=== PATIENT | female | born 2000 | race Caucasian/White ===

== ENCOUNTER 2022-09-23 19:44 | Emergency (ER) | payer OTHER ==
[2022-09-23] MEDS ORDERED: ONDANSETRON 4 MG (ODT) TAB ONE (20:39)
[2022-09-23] MEDS ORDERED: ACETAMINOPHEN 500 MG TAB ONE (20:39)
[2022-09-23 20:50] LABS: Urine Blood 2+ (Negative); Urine Glucose Negative (Negative); Urine Protein Trace (Negative); Urine pH 7.5 (5.0-7.0)
--- NOTE | 2022-09-23 21:34 | RAD REPORT ---
EXAM DESCRIPTION: RAD - Chest Pa And Lat (2 Views) - 09/23/2022 9:05 pm CLINICAL HISTORY: SOB Chest pain. COMPARISON: No comparisons FINDINGS: The lungs are clear. The heart is normal in size. No displaced fractures. IMPRESSION: No acute or concerning finding suspected.
--- NOTE | 2022-09-23 22:01 | EDPHYS ---
Physician Documentation [facility] Name: Anila Cai Age: 22 yrs Sex: Female : 2000 Arrival Date: 09/23/2022 Time: 19:49 Bed 10 Private MD: ED Physician Lux Jacobs HPI: 09/23 20:17 This 22 yrs old Female presents to ER via Ambulatory with complaints of COVID +, cp Headache, Shortness Of Breath, Sore Throat, General Weakness. 20:17 The patient has shortness of breath at rest. cp 20:17 Onset: The symptoms/episode began/occurred today. Associated signs and symptoms: cp Pertinent positives: non-productive cough, sore throat, headache, general weakness, Pertinent negatives: fever, vomiting. Severity of symptoms: in the emergency department the symptoms are unchanged despite home interventions. Patient reports testing positive for COVID-19 today with symptoms starting 2 days ago. 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 - Social history:: Smoking status: Patient denies any tobacco usage or history of. ROS: 20:20 Constitutional: Positive for body aches, Negative for chills, fever, poor PO intake. cp 20:20 Eyes: Negative for injury, pain, redness, and discharge. cp 20:20 ENT: Positive for sore throat, Negative for drainage from ear(s), ear pain, difficulty swallowing, difficulty handling secretions. 20:20 Cardiovascular: Negative for chest pain. 20:20 Respiratory: Positive for cough, shortness of breath, at rest. Negative for wheezing. 20:20 Abdomen/GI: Negative for abdominal pain, vomiting, diarrhea, constipation. 20:20 : Negative for urinary symptoms. 20:20 Neuro: Positive for headache, weakness, Negative for altered mental status. 20:20 All other systems are negative. Exam: 20:25 Constitutional: The patient appears in no acute distress, alert, awake, non-toxic, well cp developed, well nourished, obese. 20:25 Head/Face: Normocephalic, atraumatic. cp 20:25 Eyes: Periorbital structures: appear normal, Pupils: equal, round, and reactive to light and accomodation, Extraocular movements: intact throughout, Conjunctiva: normal, no exudate, no injection, Sclera: no appreciated abnormality, Lids and lashes: appear normal, bilaterally. 20:25 ENT: External ear(s): are unremarkable, Ear canal(s): are normal, clear, TM's: dullness, bilaterally, Nose: is normal, Mouth: Lips: moist, Oral mucosa: pink and intact, moist, Posterior pharynx: Airway: no evidence of obstruction, patent, Tonsils: no enlargement, no exudate, erythema, that is mild, exudate, is not appreciated. 20:25 Neck: ROM/movement: is normal, is supple, without pain, no range of motions limitations, no meningismus. 20:25 Chest/axilla: Inspection: normal. 20:25 Cardiovascular: Rate: normal, Rhythm: regular. 20:25 Respiratory: the patient does not display signs of respiratory distress, Respirations: normal, no use of accessory muscles, no retractions, labored breathing, is not present, Breath sounds: are clear throughout, no decreased breath sounds, no stridor, no wheezing. 20:25 Abdomen/GI: Inspection: abdomen appears normal, Palpation: abdomen is soft and non-tender, in all quadrants. 20:25 Neuro: Orientation: to person, place \T\ time. Mentation: is normal, Motor: moves all fours, strength is normal, Sensation: is normal. Vital Signs: 19:58 BP 130 / 69; Pulse 93; Resp 22; Temp 99.1; Pulse Ox 98% ; Weight 122.47 kg; Height 5 kb3 ft. 8 in. (172.72 cm); Pain 8/10; 22:12 BP 124 / 65; Pulse 90; Resp 18; Pulse Ox 99% ; kb3 19:58 Body Mass Index 41.05 (122.47 kg, 172.72 cm) kb3 MDM: 20:03 Patient medically screened. cp 20:30 Differential diagnosis: Anemia Anxiety Reaction pneumonia, Pneumothorax pulmonary cp edema, Pulmonary Embolism Sepsis. 22:00 Data reviewed: vital signs, nurses notes, lab test result(s), EKG, radiologic studies, cp plain films. 22:00 Test interpretation: by ED physician or midlevel provider: ECG, plain radiologic cp studies. Counseling: I had a detailed discussion with the patient and/or guardian regarding: the historical points, exam findings, and any diagnostic results supporting the discharge/admit diagnosis, lab results, radiology results, to return to the emergency department if symptoms worsen or persist or if there are any questions or concerns that arise at home. Response to treatment: the patient's symptoms have mildly improved after treatment, VSS. Patient appears non-toxic and no signs of respiratory distress. Will discharge to home for continued monitoring. 09/23 20:50 Order name: Urine Dipstick-Ancillary; Complete Time: 21:09 EDMS 09/23 21:33 Interpretation: Reviewed. 09/23 20:55 Order name: Urine --Ancillary (enter results); Complete Time: 21:09 wm 09/23 20:18 Order name: XRAY Chest Pa And Lat (2 Views); Complete Time: 21:59 cp 09/23 21:59 Interpretation: Report reviewed. 09/23 20:18 Order name: EKG; Complete Time: 20:19 cp 09/23 20:18 Order name: EKG - Nurse/Tech; Complete Time: 20:55 cp 09/23 20:18 Order name: Urine Dipstick-Ancillary (obtain specimen); Complete Time: 20:49 cp 09/23 20:18 Order name: Urine Test (obtain specimen); Complete Time: 20:49 cp 09/23 21:33 Order name: PO challenge; Complete Time: 22:03 cp Administered Medications: 20:42 Drug: Zofran (Ondansetron) 4 mg Route: PO; hb 21:30 Follow up: Response: No adverse reaction; Nausea is decreased kb3 20:42 Drug: Tylenol 1000 mg Route: PO; hb 21:30 Follow up: Response: No adverse reaction kb3 Disposition Summary: 09/23/22 22:00 Discharge Ordered Location: Home cp Problem: new cp Symptoms: have improved cp Condition: Stable cp Diagnosis - SARS-associated coronavirus as the cause of diseases classified elsewhere cp - Headache cp - Nausea cp Followup: cp - With: Private Physician - When: 2 - 3 days - Reason: Worsening of condition Discharge Instructions: - Discharge Summary Sheet cp - COVID-19 cp - Things to Know about the COVID-19 Pandemic - [facility] [place] - 10 Things You Can Do to Manage Your COVID-19 Symptoms at Home - [facility] [place] - COVID-19: Quarantine vs. Isolation - [facility] [place] cp - Prevent the Spread of COVID-19 if You Are Sick - [facility] [place] cp Forms: - Medication Reconciliation Form cp - Thank You Letter cp - Antibiotic Education cp - Prescription Opioid Use cp - Work release form mw Prescriptions: - Paxlovid (EUA) 150 mg x 2- 100 mg Oral tablet - take 3 tablet by ORAL route 2 times per day for 5 days per package directions; cp 30 tablet; Refills: 0, Product Selection Permitted - Zofran 4 mg Oral Tablet - take 1 tablet by ORAL route every 12 hours As needed; 20 tablet; Refills: 0, cp Product Selection Permitted Signatures: Dispatcher [employer] EDLux Arguelles PA PA cp Baxter, Heather, RN RN Gregoria Javier RN RN kb3
--- NOTE | 2022-09-23 22:01 | ER ---
Nurse's Notes [facility] Name: Anila Cai Age: 22 yrs Sex: Female : 2000 Arrival Date: 09/23/2022 Time: 19:49 Bed 10 Private MD: Diagnosis: SARS-associated coronavirus as the cause of diseases classified elsewhere;Headache;Nausea Presentation: 09/23 19:58 Chief complaint: Patient states: tested positive for covid today. Reports feeling SOB kb3 with headache and nausea. Coronavirus screen: Vaccine status: Patient reports receiving the 2nd dose of the covid vaccine. Client denies travel out of the [place] in the last 14 days. Ebola Screen: Patient negative for fever greater than or equal to 101.5 degrees Fahrenheit, and additional compatible Ebola Virus Disease symptoms Patient denies exposure to infectious person. Patient denies travel to an Ebola-affected area in the 21 days before illness onset. No symptoms or risks identified at this time. Initial Sepsis Screen: Does the patient meet any 2 criteria? No. Patient's initial sepsis screen is negative. Does the patient have a suspected source of infection? No. Patient's initial sepsis screen is negative. Risk Assessment: Do you want to hurt yourself or someone else? Patient reports no desire to harm self or others. Onset of symptoms was September 22, 2022. 19:58 Method Of Arrival: Ambulatory [facility] 19:58 Acuity: SOLA 4 kb3 Triage Assessment: 20:00 Headache History: Denies prior headaches. General: Appears in no apparent distress. kb3 uncomfortable, Behavior is calm, cooperative. Pain: Complains of pain in forehead and right frontal area Pain does not radiate. Pain currently is 7 out of 10 on a pain scale. Quality of pain is described as aching, Pain began 1 day ago. Is continuous, Also complains of nausea. Neuro: No deficits noted. Reports headache. 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 - Social history:: Smoking status: Patient denies any tobacco usage or history of. Screenin:42 [facility] ED Fall Risk Assessment (Adult) Score/Fall Risk Level 0 - 2 = Low Risk hb Oriented to surroundings, Maintained a safe environment. Abuse screen: Denies threats or abuse. Denies injuries from another. Nutritional screening: No deficits noted. Tuberculosis screening: No symptoms or risk factors identified. Fall Risk Total Knight Fall Scale indicates No Risk (0-24 pts). Assessment: 20:42 General: Appears in no apparent distress. uncomfortable, Behavior is calm, cooperative. hb Pain: Pain currently is 8 out of 10 on a pain scale. Neuro: Level of Consciousness is awake, alert, obeys commands, Oriented to person, place, time, situation. Cardiovascular: Patient's skin is warm and dry. Respiratory: Respiratory effort is even, unlabored, Respiratory pattern is regular, symmetrical. GI: No signs and/or symptoms were reported involving the gastrointestinal system. : No signs and/or symptoms were reported regarding the genitourinary system. EENT: No signs and/or symptoms were reported regarding the EENT system. Derm: Skin is pink, warm \T\ dry. Musculoskeletal: No signs and/or symptoms reported regarding the musculoskeletal system. Vital Signs: 19:58 BP 130 / 69; Pulse 93; Resp 22; Temp 99.1; Pulse Ox 98% ; Weight 122.47 kg; Height 5 kb3 ft. 8 in. (172.72 cm); Pain 8/10; 22:12 BP 124 / 65; Pulse 90; Resp 18; Pulse Ox 99% ; kb3 19:58 Body Mass Index 41.05 (122.47 kg, 172.72 cm) kb3 ED Course: 19:49 Patient arrived in ED. [id number] 19:59 Lux Torrez PA is PHCP. cp 19:59 Lux Jacobs MD is Attending Physician. cp 20:00 Triage completed. kb3 20:00 Arm band placed on right wrist. kb3 20:36 Ramona Meade, RN is Primary Nurse. hb 20:42 Patient has correct armband on for positive identification. hb 21:07 XRAY Chest Pa And Lat (2 Views) In Process Unspecified. EDMS 22:12 No provider procedures requiring assistance completed. Patient did not have IV access kb3 during this emergency room visit. Administered Medications: 20:42 Drug: Zofran (Ondansetron) 4 mg Route: PO; hb 21:30 Follow up: Response: No adverse reaction; Nausea is decreased kb3 20:42 Drug: Tylenol 1000 mg Route: PO; hb 21:30 Follow up: Response: No adverse reaction kb3 Medication: 20:42 VIS not applicable for this client. hb Outcome: 22:00 Discharge ordered by . rocio 22:12 Discharged to home ambulatory. kb3 22:12 Condition: stable 22:12 Discharge instructions given to patient, Instructed on discharge instructions, follow up and referral plans. medication usage, Demonstrated understanding of instructions, follow-up care, medications, Prescriptions given X 2. 22:14 Patient left the ED. kb3 Signatures: Dispatcher [employer] EDMS Lux Torrez PA PA cp Baxter, Heather, RN RN Roxanne Sanders [email or web address] Gregoria Javier, RN RN kb3
[2022-09-23 22:19] VITALS: TEMP 99.1
[2022-09-23 22:20] VITALS: BP 124/65; O2SAT 99
== END 2022-09-23 22:14 | disposition home or self-care (01) ==
LOC: ER 19:44
DX: U07.1 COVID-19 (principal); R11.0 Nausea; Z88.0 Allergy status to penicillin; Z88.1 Allergy status to other antibiotic agents
CPT/HCPCS: 81025; 81003; 71046; 99283; Q0162; 93005